=== PATIENT | male | born 1960 | race Caucasian/White ===

== ENCOUNTER 2016-09-11 10:38 | Emergency (ER) | payer MEDICARE, MEDICAID ==
[2016-09-11] MEDS ORDERED: oxyCOD/ACETAMIN 5 MG/325 MG TABLET PO STA (11:15)
[2016-09-11] MEDS ORDERED: KETOROLAC 60 MG/2 ML VIAL IM STA (11:15)
--- NOTE | 2016-09-11 11:20 | ED Physician Documentation ---
History of Present Illness - Stated complaint Stated Complaint: BACK PX - Chief complaint Chief Complaint: Back Pain - History obtained from History obtained from: Patient - Additonal information Additional information: This patient is a 56-year-old man with a history of bipolar disorder and chronic neck and low back pain he says he is normally on Percocet 5 mg 3 times daily. In addition he takes Celexa and lithium for his bipolar disorder. He is here primarily for the complaint of low back pain. He says he is camping in area and subsequently has had increase in his low back pain. He denies any frequent visits to the emergency department and normally he sees his physician and [facility]. He denies have any numbness or tingling in the legs and has no bowel or bladder complaints Concerns. He has no perineal anesthesia. He has no weakness in his legs and his gait is antalgic otherwise the pain is just localized in the low back. Feels like his typical low back pain. Review of systems: For pertinent positive and negative questions for the review of systems please see history of present illness. Otherwise all other systems have been reviewed and are negative. Dragon disclaimer: Parts of this medical record were created using voice recognition technology. Because of the inherent limitations of this system occasional same sounding word substitutions do occur and persist despite proofreading. Please read the document for context. PD PAST MEDICAL HISTORY - Past Medical History Past Medical History: Yes Psych: Depression Other Past Medical History: chronic back pain - Past Surgical History Past Surgical History: Yes - Present Medications Home Medications: Ambulatory Orders Medication Instructions Recorded Confirmed Cetirizine [ZyrTEC] 10 mg PO DAILY 09/11/16 09/11/16 Citalopram [CeleXA] 10 mg PO DAILY 09/11/16 09/11/16 [place] 150 mg PO DAILY 09/11/16 09/11/16 Lorazepam [Ativan] 1 mg PO QPM PRN #3 tablet 09/11/16 oxyCODONE/ACET 5/325 [Percocet 5 1 each PO Q4-6H PRN #14 tablet 09/11/16 mg/325 mg] oxyCODONE/ACET 5/325 [Percocet 5 1 tab PO DAILY 09/11/16 09/11/16 mg/325 mg] - Allergies Allergies/Adverse Reactions: Allergies Allergy/AdvReac Type Severity Reaction Status Date / Time No Known Drug Allergies Allergy Verified 09/11/16 10:44 - Social History Does the pt smoke?: Yes Smoking Status: Current every day smoker Does the pt drink ETOH?: No Does the pt have substance abuse?: No PD ED PE NORMAL - Vitals Vital signs reviewed: Yes - General General: Alert and oriented X 3, No acute distress, Other (Sitting up in the bed stiffly) - HEENT HEENT: Atraumatic - Neck Neck: Supple, no meningeal sign - Cardiac Cardiac: RRR - Respiratory Respiratory: No respiratory distress, Clear bilaterally - Abdomen Abdomen: Normal bowel sounds - Extremities Extremities: No deformity, Normal ROM s pain - Neuro Neuro: Alert and oriented X 3, No motor deficit, No sensory deficit, Normal speech - Psych Psych: Normal mood, Normal affect Results - Vitals Vitals: Vital Signs - 24 hr 09/11/16 10:42 Temperature 35.7 C L Heart Rate 69 Respiratory 18 Rate Blood Pressure 123/92 H O2 Saturation 96 Oxygen O2 Source Room air PD MEDICAL DECISION MAKING - ED course ED course: 56-year-old man who is camping locally in the area with acute flare of chronic low back pain. There are no concerning neurologic complaints or findings on physical examination. He is given Toradol 60 mg intramuscularly and they wish him a small amount of additional narcotic analgesia. I have not seen any type of any report on this patientThat demonstratesThat he is. Disposition: To home Clinical impression: 1. Acute on chronic low back pain 2. Bipolar disorder on Celexa and lithium-stablea frequent ED user Departure - Departure Disposition: 01 Home, Self Care Clinical Impression: Back pain Qualifiers: Back pain location: low back pain Chronicity: acute Back pain laterality: bilateral Sciatica presence: without sciatica Qualified Code(s): M54.5 - Low back pain Condition: Good Instructions: ED Chronic Pain Management, IBUPROFEN (Adult), NARCOTIC, Oral Follow-Up: your,physician [Other] Prescriptions: Lorazepam [Ativan] 1 mg PO QPM PRN #3 tablet PRN Reason: Insomnia oxyCODONE/ACET 5/325 [Percocet 5 mg/325 mg] 1 each PO Q4-6H PRN #14 tablet PRN Reason: Pain
[2016-09-11] MEDS ORDERED: KETOROLAC 60 MG/2 ML VIAL ONE (11:33)
[2016-09-11 11:44] VITALS: BP 145/98
== END 2016-09-11 11:44 | disposition home or self-care (01) ==
LOC: ED 10:38
DX: M54.5 Low back pain (principal); G89.29 Other chronic pain; F31.9 Bipolar disorder, unspecified; F17.200 Nicotine dependence, unspecified, uncomplicated
CPT/HCPCS: 96372; 99283; 99284; A9270